=== PATIENT | female | born 1990 | race Caucasian/White ===

== ENCOUNTER 2016-11-15 18:28 | Observation (INO) ==
[2016-11-15 18:48] LABS: Bilirubin,Urine Negative (Negative); Blood,Urine Trace (Negative); Clarity,Urine Clear (Clear); Color,Urine Yellow (Yellow); Glucose,Urine (UA) Normal (Normal); Ketones,Urine Negative (Negative); Leukocyte Esterase,Urine Negative (Negative); Nitrite,Urine Negative (Negative); PH,Urine 7.5 pH Units (5.0-8.0); Protein,Urine Negative (Neg-Trace); Specific Gravity,Urine 1.008 (1.010-1.025); Urobilinogen,Urine Normal (Normal)
[2016-11-15 18:50] LABS: Bacteria,Urine None Seen per hpf (None-Few); Hyaline Casts,Urine None Seen per lpf (None-Few); Squamous Epithelial Cell,Urine Many per lpf (None-Few); WBC,Urine 0-3 per hpf (0-3)
[2016-11-15 19:02] LABS: RBC,Urine 0-3 per hpf (0-3)
[2016-11-15 19:14] LABS: Basophils % 0.3 %; Eosinophils # 0.1 K/mcL (0.0-0.6); Eosinophils % 0.8 %; Hematocrit 42.2 % (35.3-44.9); Immature Granulocytes % 0.3 % (0-4); Lymphocytes % 17.2 %; Mean Corpuscular HGB Conc 33.2 g/dL (31.6-35.5); Mean Corpuscular Hemoglobin 28.2 pg (28.0-33.3); Mean Corpuscular Volume 84.9 fL (83.0-100.0); Mean Platelet Volume 10.4 fL (9.4-12.4); Monocytes # 0.6 K/mcL (0.0-1.3); Monocytes % 5.2 %; Neutrophils # 8.9 K/mcL (1.6-8.9); Platelet Count 246 K/mcL (140-400); Red Blood Count 4.97 M/mcL (3.82-4.97); Red Cell Distribution Width 13.1 % (11.5-14.5); Segmented Neutrophils % 76.2 %
[2016-11-15 19:28] LABS: Alanine Aminotransferase 27 Units/L (0-55); Albumin 4.3 g/dL (3.5-5.0); Albumin/Globulin Ratio 1.3 (1.1-2.2); Alkaline Phosphatase 54 Units/L (38-126); Aspartate Amino Transferase 16 Units/L (5-34); BUN/Creatinine Ratio 9 (6-26); Bilirubin,Direct 0.5 mg/dL (0.0-0.5); Bilirubin,Indirect 0.7 mg/dL (0.0-1.2); Bilirubin,Total 1.2 mg/dL (0.2-1.2); Blood Urea Nitrogen 7 mg/dL (7-20); Calcium 9.8 mg/dL (8.6-10.8); Carbon Dioxide 25 mEq/L (19-29); Chloride 105 mEq/L (98-109); Globulin 3.2 g/dL (2.4-3.5); Glucose 86 mg/dL (70-99); Lipase 20 Units/L (8-78); Osmolality,Calculated 287 (280-300); Potassium 3.7 mEq/L (3.5-4.5); Sodium 140 mEq/L (136-145); Total Protein 7.5 g/dL (6.0-8.3); eGFR For African Americans > 60 (> 60); eGFR For Non-African Americans > 60 (> 60)
--- NOTE | 2016-11-15 20:02 | Emergency Department Note ---
Disposition Clinical Impression: Appendicitis Qualifiers: Appendicitis type: acute appendicitis Acute appendicitis type: unspecified acute appendicitis type Qualified Code(s): K35.80 - Unspecified acute appendicitis Disposition: Admitted As Inpatient Condition: Good Abdominal Pain HPI - General Chief Complaint: ED Abdominal Pain Stated Complaint: RLQ pain Time Seen by Provider: 11/15/16 18:39 Source: patient Mode of arrival: ambulatory Limitations: no limitations Nursing Notes Reviewed: Yes Vital Signs Reviewed: Yes - History of Present Illness HPI Narrative: Patient here for evaluation of right lower quadrant abdominal pain. Some from urgent care for rule out appendicitis. Patient's pain started 2 days ago while she was sitting on the couch. Patient states she has not had pain similar to this in the past. She does have a history of ovarian cysts. She has had minor fluctuations in the overall amount of pain. Nothing makes it specifically better or worse. Describes as a sharp pain with radiation to the suprapubic area. She does not have fever or chills. She does not have any new sexual contacts. She has no vaginal discharge. Pain Scale: 3 - Related Data Allergies Allergy/AdvReac Type Severity Reaction Status Date / Time No Known Allergies Allergy Verified 11/15/16 18:32 Review of Systems: CONSTITUTIONAL: No weight loss, fever, chills, weakness or fatigue. HEENT: Eyes: No visual changes. Ears, Nose, Throat: No hearing loss, difficulty talking or unable to swallow. SKIN: No rash or itching. CARDIOVASCULAR: No chest pain, chest pressure or chest discomfort. No palpitations or edema. RESPIRATORY: No shortness of breath, cough or sputum. GASTROINTESTINAL: Right lower quadrant abdominal pain GENITOURINARY: No burning on urination or hematuria. NEUROLOGICAL: No headache, dizziness, syncope, paralysis, ataxia, numbness or tingling in the extremities. No change in bowel or bladder control. MUSCULOSKELETAL: No muscle pain, back pain, joint pain or stiffness. Abdominal Pain PMH - Past Medical History Medical history: Reports: no medical history Female Surgical History: Reports: no surgical history SEO COORDINATOR history: Reports: no SEO COORDINATOR history : 0 Para: 0 A: 0 Psychiatric history: Reports: no psych history - Social History Smoking status: Never smoker Alcohol use: Reports: none Drug use: Reports: none Physical Exam General appearance: NAD, conversant Eyes: anicteric sclerae, moist conjunctivae; PERRL HENT: Atraumatic; oropharynx clear with moist mucous membranes and no mucosal ulcerations Neck: Normal inspection; Trachea midline; FROM, supple Lungs: CTA, with normal respiratory effort and no intercostal retractions CV: RRR, no MRGs Abdomen: Soft, tenderness to palpation of the right lower quadrant and suprapubic region. No rebound or guarding. Extremities: No peripheral edema or extremity lymphadenopathy Skin: Normal temperature; no rash, ulcers or lesions Psych: Appropriate mood and affect Neuro: alert and oriented to person, place and time - General Limitations: no limitations General appearance: alert, in no apparent distress Course - Reevaluation(s) Reevaluation #1: Patient has a slightly elevated white count and a CT scan concerning for appendicitis. Will discuss with surgery and likely admit. - Consultations Consultation #1: Discussed with Dr. Morales. Patient to receive a dose of Zosyn and possible surgery tomorrow. Vital Signs Temperature 98.7 F 11/15/16 18:29 Pulse Rate 107 11/15/16 18:29 Respiratory Rate 16 11/15/16 18:29 Blood Pressure 146/100 11/15/16 18:29 O2 Sat by Pulse Oximetry 98 11/15/16 18:29 Temperature 98.7 F 11/15/16 18:29 Pulse Rate 107 11/15/16 18:29 Respiratory Rate 16 11/15/16 18:29 Blood Pressure 146/100 11/15/16 18:29 O2 Sat by Pulse Oximetry 98 11/15/16 18:29 Oxygen Delivery Oxygen Delivery Room Air Abdominal Pain - Lab Data Result diagrams: 11/15/16 19:07 11/15/16 19:07 Lab Results 11/15/16 11/15/16 11/15/16 Range/Units 18:40 18:40 19:07 WBC 11.7 H (4.3-11.1) K/mcL RBC 4.97 (3.82-4.97) M/mcL Hgb 14.0 (11.5-15.4) g/dL Hct 42.2 (35.3-44.9) % MCV 84.9 (83.0-100.0) fL MCH 28.2 (28.0-33.3) pg MCHC 33.2 (31.6-35.5) g/dL RDW 13.1 (11.5-14.5) % Plt Count 246 (140-400) K/mcL MPV 10.4 (9.4-12.4) fL Immature Gran % 0.3 (0-4) % Seg Neutrophils % 76.2 % Lymphocytes % 17.2 % Monocytes % 5.2 % Eosinophils % 0.8 % Basophils % 0.3 % Neutrophils # 8.9 (1.6-8.9) K/mcL Lymphocytes # 2.0 (0.6-4.6) K/mcL Monocytes # 0.6 (0.0-1.3) K/mcL Eosinophils # 0.1 (0.0-0.6) K/mcL Basophils # 0.0 (0.0-0.2) K/mcL Sodium (136-145) mEq/L Potassium (3.5-4.5) mEq/L Chloride (98-109) mEq/L Carbon Dioxide (19-29) mEq/L BUN (7-20) mg/dL Creatinine (0.57-1.11) mg/dL Est GFR ( Amer) (> 60) Est GFR (Non-Af Amer) (> 60) BUN/Creatinine Ratio (6-26) Glucose (70-99) mg/dL Calculated Osmolality (280-300) Calcium (8.6-10.8) mg/dL Total Bilirubin (0.2-1.2) mg/dL Direct Bilirubin (0.0-0.5) mg/dL Indirect Bilirubin (0.0-1.2) mg/dL AST (5-34) Units/L ALT (0-55) Units/L Alkaline Phosphatase (38-126) Units/L Serum Total Protein (6.0-8.3) g/dL Albumin (3.5-5.0) g/dL Globulin (2.4-3.5) g/dL Albumin/Globulin Ratio (1.1-2.2) Lipase (8-78) Units/L Urine Color Yellow (Yellow) Urine Clarity Clear (Clear) Urine pH 7.5 (5.0-8.0) pH Units Ur Specific [place] 1.008 L (1.010-1.025) Urine Protein Negative (Neg-Trace) mg/dL Urine Glucose (UA) Normal (Normal) mg/dL Urine Ketones Negative (Negative) mg/dL Urine Blood Trace H (Negative) Urine Nitrite Negative (Negative) Urine Bilirubin Negative (Negative) Urine Urobilinogen Normal (Normal) mg/dL Ur Leukocyte Esterase Negative (Negative) Urine Microscopic RBC 0-3 (0-3) per hpf Urine Microscopic WBC 0-3 (0-3) per hpf Ur Squamous Epith Cells Many H (None-Few) per lpf Urine Bacteria None Seen (None-Few) per hpf Hyaline Casts None Seen (None-Few) per lpf Ur Culture Indicated? NO (NO) Urine Test Negative (Negative) 11/15/16 Range/Units 19:07 WBC (4.3-11.1) K/mcL RBC (3.82-4.97) M/mcL Hgb (11.5-15.4) g/dL Hct (35.3-44.9) % MCV (83.0-100.0) fL MCH (28.0-33.3) pg MCHC (31.6-35.5) g/dL RDW (11.5-14.5) % Plt Count (140-400) K/mcL MPV (9.4-12.4) fL Immature Gran % (0-4) % Seg Neutrophils % % Lymphocytes % % Monocytes % % Eosinophils % % Basophils % % Neutrophils # (1.6-8.9) K/mcL Lymphocytes # (0.6-4.6) K/mcL Monocytes # (0.0-1.3) K/mcL Eosinophils # (0.0-0.6) K/mcL Basophils # (0.0-0.2) K/mcL Sodium 140 (136-145) mEq/L Potassium 3.7 (3.5-4.5) mEq/L Chloride 105 (98-109) mEq/L Carbon Dioxide 25 (19-29) mEq/L BUN 7 (7-20) mg/dL Creatinine 0.79 (0.57-1.11) mg/dL Est GFR ( Amer) > 60 (> 60) Est GFR (Non-Af Amer) > 60 (> 60) BUN/Creatinine Ratio 9 (6-26) Glucose 86 (70-99) mg/dL Calculated Osmolality 287 (280-300) Calcium 9.8 (8.6-10.8) mg/dL Total Bilirubin 1.2 (0.2-1.2) mg/dL Direct Bilirubin 0.5 (0.0-0.5) mg/dL Indirect Bilirubin 0.7 (0.0-1.2) mg/dL AST 16 (5-34) Units/L ALT 27 (0-55) Units/L Alkaline Phosphatase 54 (38-126) Units/L Serum Total Protein 7.5 (6.0-8.3) g/dL Albumin 4.3 (3.5-5.0) g/dL Globulin 3.2 (2.4-3.5) g/dL Albumin/Globulin Ratio 1.3 (1.1-2.2) Lipase 20 (8-78) Units/L Urine Color (Yellow) Urine Clarity (Clear) Urine pH (5.0-8.0) pH Units Ur Specific [place] (1.010-1.025) Urine Protein (Neg-Trace) mg/dL Urine Glucose (UA) (Normal) mg/dL Urine Ketones (Negative) mg/dL Urine Blood (Negative) Urine Nitrite (Negative) Urine Bilirubin (Negative) Urine Urobilinogen (Normal) mg/dL Ur Leukocyte Esterase (Negative) Urine Microscopic RBC (0-3) per hpf Urine Microscopic WBC (0-3) per hpf Ur Squamous Epith Cells (None-Few) per lpf Urine Bacteria (None-Few) per hpf Hyaline Casts (None-Few) per lpf Ur Culture Indicated? (NO) Urine Test (Negative) Attestation Statement - Attestation Attestation: Patient was seen with resident physician. I reviewed the history, physical, assessment and plan, and agree with the findings. I also personally evaluated this patient and had [id number] time with this patient. 26-year-old female presents to the emergency department with chief complaint of right lower quadrant abdominal pain. Patient states she has had pain for last several days getting progressively worse. She is currently on her period. She denies being . She denies urination symptoms. She has not had nausea or vomiting. No diarrhea. On examination vital signs are stable. ENT is unremarkable. Heart and lungs are normal. Abdomen is soft there is tenderness in the right lower quadrant there is no guarding or rigidity. Extremities unremarkable. Neurologically the patient is intact. We will get a CT scan of the abdomen and pelvis check for appendicitis. Basic labs are unremarkable. Patient appeared relatively comfortable. CT scan of the abdomen was positive for acute appendicitis. Surgery was notified. The recommendation was to start on IV antibiotics and admit for evaluation in the morning. Patient remained hemodynamically stable while in the emergency department. Agree with the resident physician assessment and plan.
[2016-11-15] MEDS ORDERED: Piperacillin/Tazobactam 3.375 GM in D5% in Water (Mini-Bag+) 100 ML IVPB ONE (21:37)
[2016-11-15] MEDS ORDERED: 0.9 % Sodium Chloride 1,000 ML IVC ONE (22:53)
[2016-11-16] MEDS ORDERED: *HR* Promethazine 25 MG/ML VIAL IVP PRN ×3 (00:14→22:00)
[2016-11-16] MEDS: Ondansetron 4 MG/2 ML VIAL IVP PRN ×2 (01:32→09:41)
[2016-11-16] MEDS: *HR* HYDROmorphone (PF) 1 MG/ML SYRINGE IVP PRN ×2 (01:32→09:41)
[2016-11-16] MEDS: 0.9 % Sodium Chloride 1,000 ML IV SCH ×3 (03:16→22:35)
[2016-11-16] MEDS ORDERED: Naloxone 0.4 MG/ML INJ IVP PRN ×2 (07:26→22:00)
[2016-11-16] MEDS ORDERED: *HR* Metoprolol 5 MG/5 ML VIAL IVP PRN (07:26)
--- NOTE | 2016-11-16 07:51 | General Surg History&Physical ---
<MarielaEnrico - Last Filed: 11/16/16 07:36> Date of Encounter: 11/16/16 Time of Encounter: 06:30 Assessment and Plan (1) Appendicitis Current Visit: Yes Status: Acute With elevated WBC count, CT scan, and clinical signs, uncomplicated acute appendicitis is the favored diagnosis Plan for laparoscopic appendectomy, possible open, with Dr. Morales today. Consent was obtained. Risks and benefits were explained. The assessment and plan as outlined above was discussed with the patient and/or family members who expressed understanding and agreement. All questions were answered. Qualifiers: Appendicitis type: acute appendicitis Acute appendicitis type: unspecified acute appendicitis type Qualified Code(s): K35.80 - Unspecified acute appendicitis History of Present Illness Chief complaint: Abdominal Pain HPI: Ms. Dwyer is a 26 year old female who presented to [facility] with 2 days of worsening abdominal pain in the RLQ. She described the pain as sharp in quality and ranging from 3-8/10 in intensity. She initially thought the pain was menstrual cramps. She woke up from a nap on Wednesday with the pain and went to an urgent care on Wednesday, who sent her to [facility] for evaluation. She admits to some nausea, but denies vomiting, diarrhea, anorexia, fever, and chills. On presentation to [place], her white count was slightly elevated at 11.[address] Abd/ Pelv showed thickening of the appendix and inflammation consistent with appendicitis. Past Med Surg Social Fam HX - Past Medical History Medical history: no medical history Psychiatric history: no psych history - Past Surgical History Surgical History: no surgical history - Social History Smoking Status: Never smoker Smokeless Tobacco Status: No Alcohol use: occasionally Drug use: none Medications and Allergies 3 Allergy/AdvReac Type Severity Reaction Status Date / Time No Known Allergies Allergy Verified 11/15/16 18:32 Review of Systems All systems PM: A 10-system review of systems was performed and is negative for pertinent findings except as documented above in the HPI. - Constitutional as per HPI, no anorexia, no chills, no fever(s) - Gastrointestinal abdominal pain, nausea, no diarrhea, no vomiting General Surgery Exam Initial Vital Signs Temp Pulse Resp BP Pulse Ox 98.7 F 107 16 146/100 98 11/15/16 18:29 11/15/16 18:29 11/15/16 18:29 11/15/16 18:29 11/15/16 18:29 - General physical appearance well developed, well nourished, no distress - Eyes normal ocular movement - ENT atraumatic, normocephalic - Neck trachea midline - Respiratory normal expansion, normal respiratory effort, clear to auscultation - Cardiovascular Cardiovascular exam: Present: RRR - Abdomen Abdomen general surgery: Present: bowel sounds present, soft, tender, rebound. Absent: guarding Abdominal Tenderness: Present: RLQ - Integumentary Integumentary general surgery: Present: warm and dry - Musculoskeletal Present: normal posture - Psychiatric Psychiatric general surgery: Present: appropriate, speech is normal - Additional Findings Rovsing +, Obturator equivocal Results - Labs 11/15/16 19:07 11/15/16 19:07 Abnormal lab results WBC 11.7 K/mcL (4.3-11.1) H 11/15/16 19:07 Ur Specific [place] 1.008 (1.010-1.025) L 11/15/16 18:40 Urine Blood Trace (Negative) H 11/15/16 18:40 Ur Squamous Epith Cells Many per lpf (None-Few) H 11/15/16 18:40 All other labs normal. - Imaging CT scan - abdomen: report reviewed ( CT/CT abd pelvis w iv no oral IMPRESSION: Findings consistent with acute appendicitis. An inflamed thickened appendix with inflammatory changes noted. No evidence of rupture or periappendiceal abscess. Incidental right adnexal cysts as described. D/ / 11/15/2016 21:06:07 Genevieve Corona MD / jenni Interpreting Provider: Genevieve Corona MD ), image reviewed CT scan - pelvis: report reviewed, image reviewed <Julianne Morales - Last Filed: 11/16/16 18:34> Date of Encounter: 11/16/16 Time of Encounter: 18:28 Assessment and Plan (1) Acute appendicitis Current Visit: Yes Status: Acute The assessment and plan as outlined above was discussed with the patient and/or family members who expressed understanding and agreement. All questions were answered. discussed CT and labs, patient has acute appendicitis. WIll plan laparoscopic appendectomy, possible open, risks and benefits discussed and she wishes to proceed. npo prn pain control gi/dvt prophylaxis abx Qualifiers: Acute appendicitis type: with localized peritonitis Qualified Code(s): K35.3 - Acute appendicitis with localized peritonitis (2) Leukocytosis Current Visit: Yes Status: Acute The assessment and plan as outlined above was discussed with the patient and/or family members who expressed understanding and agreement. All questions were answered. antibiotics, trend wbc Qualifiers: Leukocytosis type: unspecified Qualified Code(s): D72.829 - Elevated white blood cell count, unspecified History of Present Illness HPI: Ms. Dwyer is a 26 year old female who started having dull to sharp diffuse abdominal pain beginning two days ago. THen the pain became focused on the RLQ. No nausea or emesis. No diarrhea or dysuria. No fevers, chills or night sweats. She went to ED and ct showed acute appendicitis. WBC elevated. Past Med Surg Social Fam HX - Past Medical History Source: patient Medical history: no medical history Psychiatric history: no psych history - Past Surgical History Surgical History: no surgical history - Social History Smoking Status: Never smoker Smokeless Tobacco Status: No Alcohol use: none Drug use: none Occupational status: employed Current living situation: Home - Family History Grandmother History Unknown: Yes Review of Systems All systems PM: reviewed and no additional remarkable complaints except as stated All systems PM: A 10-system review of systems was performed and is negative for pertinent findings except as documented above in the HPI. General Surgery Exam Initial Vital Signs Temp Pulse Resp BP Pulse Ox 98.7 F 107 16 146/100 98 11/15/16 18:29 11/15/16 18:29 11/15/16 18:29 11/15/16 18:29 11/15/16 18:29 - General physical appearance well developed, well nourished, no distress - Eyes PERRL, normal ocular movement - ENT atraumatic, normocephalic - Neck trachea midline - Respiratory normal expansion, normal respiratory effort - Cardiovascular Cardiovascular exam: Present: RRR - Abdomen Abdomen general surgery: Present: bowel sounds present, soft, tender. Absent: distended, guarding, rebound Abdominal Tenderness: Present: RLQ - Integumentary Integumentary general surgery: Present: warm and dry, no abnormal pigmentation - Neurologic Present: CN 2-12 grossly intact - Musculoskeletal Present: normal gait, normal posture - Psychiatric Psychiatric general surgery: Present: A&Ox3, oriented to time, speech is normal Results - Labs 11/16/16 08:17 11/16/16 08:17 Abnormal lab results BUN 5 mg/dL (7-20) L 11/16/16 08:17 Ur Specific [place] 1.008 (1.010-1.025) L 11/15/16 18:40 Urine Blood Trace (Negative) H 11/15/16 18:40 Ur Squamous Epith Cells Many per lpf (None-Few) H 11/15/16 18:40 Diabetes panel 11/16/16 Range/Units 08:17 Sodium 141 (136-145) mEq/L Potassium 4.1 (3.5-4.5) mEq/L Chloride 109 (98-109) mEq/L Carbon Dioxide 26 (19-29) mEq/L BUN 5 L (7-20) mg/dL Creatinine 0.82 (0.57-1.11) mg/dL Glucose 85 (70-99) mg/dL Calcium 8.9 (8.6-10.8) mg/dL Calcium panel 11/16/16 Range/Units 08:17 Calcium 8.9 (8.6-10.8) mg/dL Pituitary panel 11/16/16 Range/Units 08:17 Sodium 141 (136-145) mEq/L Potassium 4.1 (3.5-4.5) mEq/L Chloride 109 (98-109) mEq/L Carbon Dioxide 26 (19-29) mEq/L BUN 5 L (7-20) mg/dL Creatinine 0.82 (0.57-1.11) mg/dL Glucose 85 (70-99) mg/dL Calcium 8.9 (8.6-10.8) mg/dL Adrenal panel 11/16/16 Range/Units 08:17 Sodium 141 (136-145) mEq/L Potassium 4.1 (3.5-4.5) mEq/L Chloride 109 (98-109) mEq/L Carbon Dioxide 26 (19-29) mEq/L BUN 5 L (7-20) mg/dL Creatinine 0.82 (0.57-1.11) mg/dL Glucose 85 (70-99) mg/dL Calcium 8.9 (8.6-10.8) mg/dL All other labs normal. - Imaging CT scan - abdomen: report reviewed CT scan - pelvis: report reviewed, image reviewed - Attending Attestation I examined this patient and my medical decision-making was reviewed with the Resident Physician. I agree with the documented findings, disposition and treatment plan as described except to the extent set forth below.
[2016-11-16 08:24] LABS: Basophils % 0.4 %; Eosinophils % 0.5 %; Hematocrit 38.5 % (35.3-44.9); Hemoglobin 12.6 g/dL (11.5-15.4); Immature Granulocytes % 0.2 % (0-4); Immature Platelets 3.3 % (1.1-6.1); Lymphocytes # 0.8 K/mcL (0.6-4.6); Lymphocytes % 10.4 %; Mean Corpuscular HGB Conc 32.7 g/dL (31.6-35.5); Mean Corpuscular Hemoglobin 28.4 pg (28.0-33.3); Mean Corpuscular Volume 86.9 fL (83.0-100.0); Mean Platelet Volume 10.4 fL (9.4-12.4); Monocytes # 0.5 K/mcL (0.0-1.3); Monocytes % 5.9 %; Neutrophils # 6.7 K/mcL (1.6-8.9); Platelet Count 229 K/mcL (140-400); Red Blood Count 4.43 M/mcL (3.82-4.97); Red Cell Distribution Width 13.2 % (11.5-14.5); Segmented Neutrophils % 82.6 %
[2016-11-16 08:34] LABS: BUN/Creatinine Ratio 6 (6-26); Carbon Dioxide 26 mEq/L (19-29); Chloride 109 mEq/L (98-109); Potassium 4.1 mEq/L (3.5-4.5); Sodium 141 mEq/L (136-145)
[2016-11-16 08:35] LABS: Blood Urea Nitrogen 5 mg/dL (7-20); Calcium 8.9 mg/dL (8.6-10.8); Glucose 85 mg/dL (70-99); Osmolality,Calculated 289 (280-300); eGFR For African Americans > 60 (> 60); eGFR For Non-African Americans > 60 (> 60)
[2016-11-16] MEDS ORDERED: Pantoprazole 40 MG VIAL IVP SCH (09:00)
--- NOTE | 2016-11-16 19:01 | Anesthesia Evaluation PreOp ---
Date of Encounter: 11/16/16 Time of Encounter: 18:59 - Past History Planned Operation: Lap. Appy Cardiac History: Denies any Significant Hx Pulmonary History: Denies Any Significant HX GUN NUMBERER History: Denies Any Significant HX Other Medical History: Denies Any Significant HX Anesthesia History: No Prior Anesthetic Complications, Past Anesthesia (None) : No Test: Negative (11/15/2016) Alcohol Use: none Drug use: none Medications and Allergies Norgestimate-Ethinyl Estradiol [Ortho-Cyclen 28 Tablet] 1 tab PO DAILY 11/16/16 [History] 3 Allergy/AdvReac Type Severity Reaction Status Date / Time No Known Allergies Allergy Verified 11/15/16 18:32 - Meds/Allergy Pre-op Review Medications Reviewed: Yes Allergies Reviewed: Yes Beta Blockers on Current Med List: No Anesthesia Results - Labs 11/16/16 08:17 11/16/16 08:17 Anesthesia Exam O2 Sat Weight 77.61 kg O2 Sat by Pulse Oximetry 99 O2 Sat by Pulse Oximetry 97 O2 Sat by Pulse Oximetry 99 O2 Sat by Pulse Oximetry 100 O2 Sat by Pulse Oximetry 100 Vital Signs Temp Pulse Resp BP Pulse Ox 98.7 F 107 16 146/100 98 11/15/16 18:29 11/15/16 18:29 11/15/16 18:29 11/15/16 18:29 11/15/16 18:29 Vital Signs/O2 Sat, Most Current Temp Pulse Resp BP Pulse Ox 99.2 F 77 14 105/70 99 11/16/16 15:16 11/16/16 15:16 11/16/16 15:16 11/16/16 15:16 11/16/16 15:16 Height: 5'7'' Weight: 171# NPO (# of Hours): > 8 hrs Pain Scale: 0 Pain Scale Used: Numeric (1 - 10) - HEENT Pupil (Motor): Pupils equal, EOMI Mallampati: II Teeth: Normal Oral Opening: Greater than 3 - GUN NUMBERER LOC: Oriented GUN NUMBERER Motor: Normal RUE, Normal LUE, Normal RLE, Normal LLE, Normal Face GUN NUMBERER Sensory: Normal: RUE, LUE, RLE, LLE, Face - Cardiac Rhythm: Regular Murmur: None JVD: No Carotid Bruit: No - Pulmonary Breath Sounds: bilateral Clear Respiratory Effort: Symmetrical Anesthesia Assess/Plan ASA Score: 1 Modified Constantino Scale for Level of Consciousness: Cooperative, oriented, and tranquil Anesthetic Plan: General Autologous Blood: Yes Monitoring Plan: Standard Monitors Recovery Plan: PACU
[2016-11-16] MEDS ORDERED: Ondansetron 4 MG/2 ML VIAL IVP ONE (19:19)
[2016-11-16] MEDS ORDERED: *HR* HYDROmorphone (PF) 1 MG/ML SYRINGE IVP PRN ×2 (19:19→22:00)
[2016-11-16] MEDS ORDERED: *HR* Midazolam HCl 2 MG/2 ML VIAL ONE (19:57)
[2016-11-16] MEDS ORDERED: *HR* FentaNYL (PF) 100 MCG/2 ML VIAL ONE ×2 (19:57→20:49)
--- NOTE | 2016-11-16 20:06 | Operative Note ---
Date of procedure: 11/16/16 Pre-op diagnosis: acute appendicitis Post-op diagnosis: same Procedure: Laparoscopic appendectomy Complications: none immediate Anesthesia: GETA, local Local Anesthetics: 0.5% Sensorcaine HCL SubQ (cc) Surgeon: Julianne Morales Specimen: appendix Condition: stable Disposition: PACU Procedure in Detail: The patient was brought into the operating suite and placed supine on the operating table. Sign-in was performed and everyone was in agreement. Anesthesia was induced and patient was endotracheally intubated by anesthesia without incident. An OG tube was placed by anesthesia. The abdomen was prepped and draped in the usual sterile fashion. A timeout was performed and again everyone was in agreement. A supraumbilical incision was made through the skin and the subcutaneous tissue with an 11 blade. Towel clamps were placed on either side of the umbilicus for retraction. S-retractors were used to dissect down to the anterior abdominal wall linea alba fascia. A Veress needle was placed into this incision and a water drop test confirmed placement and the abdomen was insufflated. We then entered the abdomen with the 5 mm 0 degree laparoscope on a 5 mm X-dara trocar. The area under entry was visualized and there was no bleeding and no apparent bowel injury. We placed a suprapubic 5 mm port under direct visualization after first incising the skin with an 11 blade. The laparoscope was placed through this and we exchanged the supraumbilical port for a 12 mm port under direct visualization. We then placed another 5 mm port in the left lower quadrant position under direct visualization after first incising the skin with an 11 blade. The patient was placed in slight Trendelenburg left side down position. The cecum was located as was the appendix. The appendix was grasped and retracted anteriorly and caudally with a laparoscopic [place]. A [place] was used to dissect between the mesoappendix and the appendix at the base of the cecum. The mesoappendix was transected with a laparoscopic flex-ex ETS stapler using a white load. The appendix was transected at the base of the cecum with the same stapler utilizing a white load. The appendix was placed in a laparoscopic Endo Catch bag and removed via the supraumbilical incision site. Both staple lines were evaluated and there was no bleeding and both staple lines were intact. The area was irrigated with sterile saline which was then suctioned free from the abdomen. The insufflation was suctioned free from the abdomen and all trochars removed. We closed the abdominal wall at the supraumbilical incision site with an 0 Vicryl [id number] stitch. A 30 cc of 0.5% Marcaine was injected subcutaneously at the 3 port sites. The skin at the two 5 mm port sites was closed with 4-0 Monocryl interrupted subcuticular stitches. The skin at the supraumbilical incision site was closed with a 4-0 Monocryl running subcuticular stitch. Steri-Strips were applied to the wounds. The patient was extubated in the OR and tolerated the procedure well and was taken to PACU after all lap and instrument counts were correct at the end of the case.
--- NOTE | 2016-11-16 20:08 | Discharge Summary ---
<Julianne Morales Emanuel - Last Filed: 11/16/16 20:06> Date of Encounter: 11/17/16 Time of Encounter: 10:35 - Discharge Diagnosis (1) Acute appendicitis Priority: Primary Status: Acute Qualifiers: Acute appendicitis type: with localized peritonitis Qualified Code(s): K35.3 - Acute appendicitis with localized peritonitis (2) Leukocytosis Priority: Secondary Status: Acute Qualifiers: Leukocytosis type: unspecified Qualified Code(s): D72.829 - Elevated white blood cell count, unspecified - Discharge Medications Home Medications: Norgestimate-Ethinyl Estradiol [Ortho-Cyclen 28 Tablet] 1 tab PO DAILY 11/16/16 [History] Docusate Sodium [Colace] 100 mg PO BID PRN #30 capsule 11/17/16 [Rx] Ondansetron ODT [Zofran ODT] 4 mg SL Q4HR PRN #30 tab.rapdis 11/17/16 [Rx] OxyCODONE/APAP 10/325 [Percocet 10/325 MG] 1 each PO Q6HR PRN #30 tablet [Rx] Allergies/Adverse Reactions: 3 Allergy/AdvReac Type Severity Reaction Status Date / Time No Known Allergies Allergy Verified 11/15/16 18:32 General Surgery Exam Initial Vital Signs Temp Pulse Resp BP Pulse Ox 98.7 F 107 16 146/100 98 11/15/16 18:29 11/15/16 18:29 11/15/16 18:29 11/15/16 18:29 11/15/16 18:29 - General physical appearance well developed, well nourished, no distress - Eyes PERRL, normal ocular movement - ENT normal mucosa, normocephalic - Neck trachea midline - Respiratory normal expansion, normal respiratory effort - Cardiovascular Cardiovascular exam: Present: RRR - Abdomen Abdomen general surgery: Present: bowel sounds present, soft, tender ( appropriate post op tenderness). Absent: guarding - Incision Incision: Present: clean and dry, intact - Integumentary Integumentary general surgery: Present: warm and dry, no abnormal pigmentation - Neurologic Present: CN 2-12 grossly intact - Musculoskeletal Present: normal posture - Psychiatric Psychiatric general surgery: Present: A&Ox3, speech is normal Date of admission: 11/15/16 22:23 Primary care physician: Kathya Medina Discharging clinician: Julianne Morales Anticipated date of discharge: 11/17/16 - Patient Status Disposition: Home, Self-Care Condition: Good Overall status at discharge: patient is progressing back to baseline - Discharge Instructions Instructions: Laparoscopic Appendectomy (DC) Follow Up With: Kathya Medina MD [Primary Care Provider] - Julianne Morales MD [Partnered Physician] - 12/03/16 2:25 pm Additional Instructions: No lifting more than 20 pounds for 2 weeks. Okay to take a shower in 24 hours. No tub baths or pools for 1 week. Okay to ride in the car wearing a seatbelt and climb steps. No driving until off narcotics for 24 hours and able to react safely Remove Steri-Strips in 1 week Do not take pain medicine/narcotics on an empty stomach it will likely cause nausea and possibly vomiting. If pain medication is too strong okay to break in half May return to work in two weeks (11/30/2016) - Diet and Activity Activity: increase activity as tolerated Diet: advance to your usual diet - Hospital Course Hospital course: Ms. Dwyer is a 26 year old female who was admitted with acute appendicitis. She underwent an uncomplicated laparoscopic appendectomy. Post op she was started on clears and advanced to regular diet. Pain control was initially with iv medication and transitioned to po. She was up ambulating having appropriate bowel and bladder function. She was discharged home in stable condition. - Time Spent with Patient Total time spent providing and/or coordinating discharge services: Less than 30 minutes Labs on day of discharge: Labs from last 24 hours 11/16/16 11/16/16 08:17 08:17 WBC 8.1 RBC 4.43 Hgb 12.6 Hct 38.5 MCV 86.9 MCH 28.4 MCHC 32.7 RDW 13.2 Plt Count 229 MPV 10.4 Immature Gran % 0.2 Seg Neutrophils % 82.6 Lymphocytes % 10.4 Monocytes % 5.9 Eosinophils % 0.5 Basophils % 0.4 Neutrophils # 6.7 Lymphocytes # 0.8 Monocytes # 0.5 Eosinophils # 0.0 Basophils # 0.0 Immature Plt Fraction 3.3 Sodium 141 Potassium 4.1 Chloride 109 Carbon Dioxide 26 BUN 5 L Creatinine 0.82 Est GFR ( Amer) > 60 Est GFR (Non-Af Amer) > 60 BUN/Creatinine Ratio 6 Glucose 85 Calculated Osmolality 289 Calcium 8.9 <Valarie Montero - Last Filed: 11/17/16 12:26> Date of Encounter: 11/17/16 General Surgery Exam Initial Vital Signs Temp Pulse Resp BP Pulse Ox 98.7 F 107 16 146/100 98 11/15/16 18:29 11/15/16 18:29 11/15/16 18:29 11/15/16 18:29 11/15/16 18:29 Date of admission: 11/15/16 22:23 Primary care physician: Kathya Medina - Patient Status Overall status at discharge: patient is progressing back to baseline - Diet and Activity Activity: increase activity as tolerated Diet: advance to your usual diet - Hospital Course Hospital course: Ms. Dwyer is a 26 year old female - Time Spent with Patient Total time spent providing and/or coordinating discharge services: Labs on day of discharge: Labs from last 24 hours 11/17/16 05:19 WBC 10.7 RBC 4.41 Hgb 12.7 Hct 38.2 MCV 86.6 MCH 28.8 MCHC 33.2 RDW 13.1 Plt Count 229 MPV 10.3
[2016-11-16] MEDS ORDERED: Neostigmine Methylsulfate 3 MG/3 ML SYRINGE ONE (20:57)
--- NOTE | 2016-11-16 21:36 | Anesthesia Evaluation Post Op ---
Date of Encounter: 11/16/16 Time of Encounter: 21:35 - Vital Signs Vital Signs: Vital Signs/O2 Sat, Most Current Temp Pulse Resp BP Pulse Ox 98.3 F 80 16 132/71 99 11/16/16 21:06 11/16/16 21:26 11/16/16 21:26 11/16/16 21:26 11/16/16 21:26 - Lungs Lungs: Clear Ascult./Percussion - Airway Airway: Non-obstructed - Cardiovascular Regular Rate - Mental Status Mental Status: Alert & Oriented, Answers Appropriately - Pain Pain Scale: 0 Pain Scale used: Numeric (1 - 10) - Nausea Vomiting Nausea Vomiting: Not Present - Hydration Hydration: Ice chips, Has not voided - Discharge PostOp Status: Transfer Patient to floor
[2016-11-16] MEDS ORDERED: 0.9 % Sodium Chloride 1,000 ML IV SCH (22:00)
[2016-11-16] MEDS ORDERED: Ondansetron 4 MG/2 ML VIAL IVP PRN (22:00)
[2016-11-17] MEDS: *HR* OxyCODONE/APAP 5/325 TABLET PO PRN ×3 (04:16→13:55)
[2016-11-17 05:38] LABS: Hematocrit 38.2 % (35.3-44.9); Hemoglobin 12.7 g/dL (11.5-15.4); Mean Corpuscular HGB Conc 33.2 g/dL (31.6-35.5); Mean Corpuscular Hemoglobin 28.8 pg (28.0-33.3); Mean Corpuscular Volume 86.6 fL (83.0-100.0); Mean Platelet Volume 10.3 fL (9.4-12.4); Platelet Count 229 K/mcL (140-400); Red Blood Count 4.41 M/mcL (3.82-4.97); Red Cell Distribution Width 13.1 % (11.5-14.5)
[2016-11-17] MEDS ORDERED: Pantoprazole 40 MG VIAL IVP SCH (09:00)
[2016-11-17 11:42] VITALS: BP 100/65
== END 2016-11-17 15:15 | disposition home or self-care (01) ==
LOC: 3NENU 18:28 → EMEROO 18:28 → 3NENU 23:18
PROVIDERS: ADMIT Surgery; ATTEND Surgery

== ENCOUNTER 2019-07-13 03:30 | Inpatient (IN) ==
[~2019-07-13 03:30] MED LIST: *HR* FentaNYL (PF) 100 MCG/2 ML VIAL IVP PRN; EPHEDrine 50 MG/ML VIAL IVP PRN; Epidural Premix (fent/bupiv) 110 ML EP SCH; Famotidine 20 MG/2 ML VIAL IVP PRN; Metoclopramide 10 MG/2 ML VIAL IVP PRN; Naloxone 0.4 MG/ML INJ IVP PRN; Ondansetron 4 MG/2 ML VIAL IVP PRN; Penicillin G Potassium 5,000,000 UNIT in 0.9 % Sodium Chloride Mini Bag 100 ML IVPB ONE; Ringers Solution, Lactated 1,000 ML IVC SCH
[2019-07-13] MEDS ORDERED: Ringers Solution, Lactated 1,000 ML ONE (03:38)
[2019-07-13 03:44] LABS: Basophils % 0.3 %; Eosinophils # 0.1 K/mcL (0.0-0.6); Eosinophils % 0.4 %; Hematocrit 40.3 % (35.3-44.9); Hemoglobin 13.6 g/dL (11.5-15.4); Immature Granulocytes % 0.6 % (0-4); Lymphocytes # 1.7 K/mcL (0.6-4.6); Lymphocytes % 15.5 %; Mean Corpuscular HGB Conc 33.7 g/dL (31.6-35.5); Mean Corpuscular Hemoglobin 29.2 pg (28.0-33.3); Mean Corpuscular Volume 86.5 fL (83.0-100.0); Mean Platelet Volume 11.1 fL (9.4-12.4); Monocytes # 0.7 K/mcL (0.0-1.3); Monocytes % 6.6 %; Neutrophils # 8.6 K/mcL (1.6-8.9); Platelet Count 188 K/mcL (140-400); Red Blood Count 4.66 M/mcL (3.82-4.97); Red Cell Distribution Width 13.6 % (11.5-14.5); Segmented Neutrophils % 76.6 %; White Blood Count 11.2 K/mcL (4.3-11.1)
[2019-07-13 03:55] LABS: Amphetamine Screen,Urine Negative ng/mL (Cutoff=1000); Barbiturate Screen,Urine Negative ng/mL (Cutoff=200); Benzodiazepines Screen,Urine Negative ng/mL (Cutoff=200); Cannabinoid Screen,Urine Negative ng/mL (Cutoff = 50); Cocaine Screen,Urine Negative ng/mL (Cutoff= 300); Opiate Screen,Urine Negative ng/mL (Cutoff=300); Phencyclidine Screen,Urine Negative ng/mL (Cutoff=25)
[2019-07-13] MEDS ORDERED: Oxytocin 20 units/ LR 1000 mL 20 UNIT/1,000 ML BAG IVC ONE (05:08)
[2019-07-13] MEDS ORDERED: Penicillin G Potassium 2,500,000 UNIT in 0.9 % Sodium Chloride 100 ML IVPB SCH (08:00)
[2019-07-13 08:15] LABS: Alanine Aminotransferase 10 Units/L (7-52); Aspartate Amino Transferase 15 Units/L (13-39); BUN/Creatinine Ratio 19 (6-26); Blood Urea Nitrogen 10 mg/dL (6-20); Lactate Dehydrogenase 198 Units/L (140-271); Uric Acid 4.3 mg/dL (2.3-7.6); eGFR For African Americans > 60 (> 60); eGFR For Non-African Americans > 60 (> 60)
[2019-07-13] MEDS ORDERED: Oxytocin 20 units/ LR 1000 mL 20 UNIT/1,000 ML BAG IVC SCH (10:15)
[2019-07-13] MEDS ORDERED: *HR* HYDROcodone/Acet 5/325 mg TABLET PO PRN (10:15)
[2019-07-13] MEDS: Prenatal Vit/FA 1 EACH TABLET PO SCH (12:08)
[2019-07-13] MEDS: Ibuprofen 600 MG TABLET PO PRN (12:08)
[2019-07-13] MEDS: Acetaminophen 325 MG TABLET PO PRN (17:28)
[2019-07-14] MEDS: Ibuprofen 600 MG TABLET PO PRN ×2 (03:09→09:12)
[2019-07-14 05:02] LABS: Basophils % 0.4 %; Eosinophils % 0.3 %; Hematocrit 34.6 % (35.3-44.9); Immature Granulocytes % 0.4 % (0-4); Lymphocytes # 1.2 K/mcL (0.6-4.6); Lymphocytes % 10.6 %; Mean Corpuscular HGB Conc 33.5 g/dL (31.6-35.5); Mean Corpuscular Hemoglobin 29.6 pg (28.0-33.3); Mean Corpuscular Volume 88.3 fL (83.0-100.0); Mean Platelet Volume 10.7 fL (9.4-12.4); Monocytes # 0.7 K/mcL (0.0-1.3); Monocytes % 5.8 %; Neutrophils # 9.4 K/mcL (1.6-8.9); Platelet Count 173 K/mcL (140-400); Red Blood Count 3.92 M/mcL (3.82-4.97); Red Cell Distribution Width 13.9 % (11.5-14.5); Segmented Neutrophils % 82.5 %; White Blood Count 11.4 K/mcL (4.3-11.1)
[2019-07-14 05:03] LABS: Hemoglobin 11.6 g/dL (11.5-15.4)
[2019-07-14 08:22] VITALS: BP 110/74
[2019-07-14] MEDS: Prenatal Vit/FA 1 EACH TABLET PO SCH (09:12)
[2019-07-14] MEDS ORDERED: Benzocaine/Menthol 56 GM AEROSOL SPRAY TP PRN (09:19)
[2019-07-14] MEDS ORDERED: Lanolin 7 G OINT...G. TP PRN (09:19)
[2019-07-14] MEDS: Acetaminophen 325 MG TABLET PO PRN (13:08)
== END 2019-07-14 15:00 | disposition home or self-care (01) | DRG 807 ==
LOC: 1NENULAB → 1NENUOBS 08:49
PROVIDERS: ADMIT Obstetrics & Gynecology; ATTEND Obstetrics & Gynecology